=== PATIENT | female | born 1940 | race Caucasian/White ===

== ENCOUNTER 2019-08-27 08:34 | Day surgery (SDC) | payer MEDICARE, OTHER ==
[2019-08-17 10:28] LABS: BASOPHILS # (AUTO) 0.1 X10'3 (0-0.2); BASOPHILS % (AUTO) 0.6 % (0-1); EOSINOPHILS # (AUTO) 0.2 X10'3 (0-0.9); EOSINOPHILS % (AUTO) 2.8 % (0-6); LYMPHOCYTES # (AUTO) 1.7 X10'3 (1.1-4.8); LYMPHOCYTES % (AUTO) 18.9 % (21-51); MEAN CORPUSCULAR HEMOGLOBIN 29.6 PG (27.0-31.0); MEAN CORPUSCULAR HGB CONC 33.1 g/dL (33.0-36.5); MEAN CORPUSCULAR VOLUME 89.2 FL (78-98); MEAN PLATELET VOLUME 8.4 FL (7.4-10.4); MONOCYTES # (AUTO) 0.7 X10'3 (0-0.9); MONOCYTES % (AUTO) 7.2 % (2-12); NEUTROPHILS # (AUTO) 6.3 X10'3 (1.8-7.7); NEUTROPHILS % (AUTO) 70.5 % (42-75); PRE OP HEMATOCRIT 45.6 % (35.0-45.0); PRE OP HEMOGLOBIN 15.1 g/dL (12.0-16.0); PRE OP PLATELET COUNT 257 X10'3 (140-440); RED BLOOD COUNT 5.11 X10'6 (4.20-5.60); RED CELL DISTRIBUTION WIDTH 16.7 % (11.5-14.5)
[2019-08-17 10:44] LABS: PRE OP PROTIME 10.5 SECONDS (9.0-12.0)
[2019-08-17 10:49] LABS: ALBUMIN 3.9 G/DL (3.4-5.0); ALBUMIN/GLOBULIN RATIO 1.4 (1.1-1.5); ALKALINE PHOSPHATASE 110 IU/L (46-116); BLOOD UREA NITROGEN 26 MG/DL (7-18); BUN/CREATININE RATIO 30.6 (6.6-38.0); CALCIUM 9.3 MG/DL (8.5-10.1); CHLORIDE 103 MMOL/L (99-107); CREATININE 0.85 MG/DL (0.40-0.90); PRE OP ANION GAP 6 (8-16); PRE OP AST 49 U/L (10-37); PRE OP BILIRUB, TOTAL 0.4 MG/DL (0.0-1.0); PRE OP GLUCOSE 101 MG/DL (70-104); PRE OP POTASSIUM 3.7 MMOL/L (3.4-5.1); PRE OP SODIUM 141 MMOL/L (135-145); TOTAL PROTEIN 6.7 G/DL (6.4-8.2); eGFR 64 ML/MIN
[2019-08-17 10:52] LABS: PRE OP ALT 102 U/L (30-65)
[2019-08-27] VITALS (17 sets, daily range): BP systolic 122–198; BP diastolic 53–96
[~2019-08-27] VITALS: Ht 162.6 cm; Wt 79.4 kg
[~2019-08-27 08:34] MED LIST: AMIT25TA10 PO; AREDS2; ASPI81TA44 PO; Cefazolin 2GM/100ML NS IVPB 100 ML IV ONE; FERR325T28 PO; HYDR-3964 PO; IBUP-1986 PO; LEVO100T9 PO; MAGN400T28 PO; SIMV-42 PO; TRIA1TAB92 PO; famotidine 20mg tablet PO ONE; vancomycin inj 1,500 MG in normal saline 300ml IV soln IV ONE
[2019-08-27] MEDS: ringers solution, lacted 1,000 ML IV SCH ×3 (08:52→16:47)
[2019-08-27] MEDS ORDERED: BUPIVAcaine/PF 2.5 mg/ml (0.25%) 30ml vial ONE (10:10)
[2019-08-27] MEDS ORDERED: BUPIVACAINE liposomal/PF 13.3 MG/ML vial IM ONE (10:18)
[2019-08-27] MEDS ORDERED: BUPIVAcaine 0.5% inj/PF 30 ML ONE (10:18)
[2019-08-27] MEDS ORDERED: hydrALAZINE 20mg/ml inj. IV PRN ×2 (10:20→11:20)
[2019-08-27] MEDS ORDERED: labetalol 20mg/4ml (5mg/ml) syringe IV PRN ×2 (10:20→11:20)
[2019-08-27] MEDS ORDERED: ondansetron/PF 4mg/2ml inj IV PRN ×3 (10:20→13:05)
[2019-08-27] MEDS ORDERED: fentaNYL/PF 50MCG/1 ML 2ML syringe IV PRN ×4 (10:20→11:20)
[2019-08-27] MEDS ORDERED: ringers solution, lacted 1,000 ML IV SCH ×2 (10:20→11:16)
[2019-08-27] MEDS ORDERED: morphine 4 MG/ML inj SYRINge IV PRN ×4 (10:20→11:20)
[2019-08-27] MEDS ORDERED: fentaNYL/PF 50MCG/1 ML 2ML syringe ONE (10:26)
[2019-08-27] MEDS ORDERED: midazolam 2 mg/2 ml injection ONE (10:26)
[2019-08-27] MEDS ORDERED: sevoflurane 250ml liquid IH ONE (10:28)
[2019-08-27] MEDS ORDERED: ondansetron/PF 4mg/2ml inj ONE (10:28)
[2019-08-27] MEDS ORDERED: dexamethasone sod phosphate 10mg/ml inj ONE (10:28)
[2019-08-27] MEDS ORDERED: propofol inj 20 ML IV ONE (11:08)
[2019-08-27] MEDS ORDERED: LIDOcaine 2% (20mg/ml) 5ml vial ONE (11:08)
[2019-08-27] MEDS ORDERED: acetaminophen 1,000mg/100ml IV 100 ML IV ONE (11:30)
--- NOTE | 2019-08-27 12:54 | NUR ---
Received from OR via [facility] BED WITH [facility] , accompanied by Anesthesiologist ASHU and report given by Anesthesiolgist. PATIENT WITH 20G PIV IN RIGHT UE RUNNING LR AT 100. ANTERIOR LEFT SHOUDLER DRESSING IS CDI. VSS. PATIENT WITH 10L MASK ON WITH 98% SATURATIONS. SCDS DONNED. MEDICATED FOR PAIN. Addendum: 08/27/19 at 1314 by Frank Parson RN, RN Amended: Links added.
[2019-08-27] MEDS ORDERED: magnesium hydroxide 30ml (MOM) UD suspension PO PRN (13:05)
[2019-08-27] MEDS ORDERED: diphenhydrAMINE 25mg capsule PO PRN ×2 (13:05)
[2019-08-27] MEDS ORDERED: acetaminophen 325mg tablet PO PRN (13:05)
[2019-08-27] MEDS ORDERED: bisacodyl 10mg suppository rectal RC PRN (13:05)
[2019-08-27] MEDS ORDERED: HYDROcodone/acetaminophen 10/325mg tab PO PRN (13:05)
--- NOTE | 2019-08-27 13:54 | NUR ---
ALL CRITERIA FOR TRANSFER TO THE FLOOR HAS BEEN ACHIEVED. VSS. BED LOW, CALL LIGHT AND VS. SET IN PLACE. RN PRESENT TO ACCEPT CARE. PATIENT RESTING COMFORTABLY IN BED. BELONGINGS SENT WITH PATIENT. DRESSINGS CDI. RADHA ANDERSEN PRESENT TO ACCEPT CARE OF THIS PATIENT. Addendum: 08/27/19 at 1427 by Frank Maher - RADHA GARCIA Amended: Links added.
[2019-08-27] MEDS ORDERED: polyvinyl alcohol ophthalmic drops 15ml bottle LEFTEYE PRN (15:35)
[2019-08-27] MEDS: potassium Cl 20mEq in NS 1,000 ML IV SCH (16:44)
[2019-08-27] MEDS: ceFAZolin 1GM/D5W- ADD-VANTAGE 50 ML IV SCH (16:45)
--- NOTE | 2019-08-27 18:13 | NUR ---
REPORT GIVEN TO RADHA SMITH
--- NOTE | 2019-08-27 19:00 | NUR ---
Patient in room ORTHO 4015. I have received report from Avtar GARCIA and had the opportunity to ask questions and assume patient care.
[2019-08-27] MEDS ORDERED: vancomycin/NS 1 GM ADD-VANTAGE 250 ML IV SCH (20:00)
[2019-08-27] MEDS ORDERED: sennosides 8.6mg tablet PO SCH (21:00)
[2019-08-27] MEDS ORDERED: levoTHYROXINE 100mcg tablet PO SCH (21:00)
[2019-08-28] MEDS: ceFAZolin 1GM/D5W- ADD-VANTAGE 50 ML IV SCH (00:07)
[2019-08-28] MEDS: potassium Cl 20mEq in NS 1,000 ML IV SCH ×2 (02:25→07:47)
--- NOTE | 2019-08-28 06:10 | NUR ---
Patient in room ORTHO 4015. I have received report from SARAH GARCIA and had the opportunity to ask questions and assume patient care.
[2019-08-28] MEDS ORDERED: triamterene/HCTZ 37.5/25mg tablet PO SCH (08:00)
[2019-08-28] MEDS ORDERED: amitriptyline 50mg tablet PO SCH (08:00)
[2019-08-28] MEDS ORDERED: aspirin 81mg tablet.DR PO SCH (08:00)
[2019-08-28 09:25] VITALS: BP 118/60
--- NOTE | 2019-08-28 10:00 | NUR ---
Student documentation: I have reviewed and agree with all interventions, assessments performed and documented by INÉS VERAS. Student Medication Administration: For this medication-pass time frame, all medication were reviewed, dispensed, administered and documented per hospital policy by INÉS VERAS.
--- NOTE | 2019-08-28 10:30 | NUR ---
PATIENT DISCHARGED HOME SAFELY WITH FRIEND AND ALL BELONGING AND POSSESSIONS. PATIENT VERBALIZED UNDERSTANDING OF DISCHARGE INSTRUCTIONS
== END 2019-08-28 10:30 | disposition home or self-care (01) ==
LOC: PAS 08:34 → ORTHO 4S 13:09 → PAS 08-28 10:30
PROVIDERS: ATTEND Orthopaedic Surgery
DX: S46.012A Strain of muscle(s) and tendon(s) of the rotator cuff of left shoulder, initial encounter (principal); M19.012 Primary osteoarthritis, left shoulder; G89.18 Other acute postprocedural pain; I10 Essential (primary) hypertension; Z79.899 Other long term (current) drug therapy; Z79.01 Long term (current) use of anticoagulants; Z88.5 Allergy status to narcotic agent; Z96.651 Presence of right artificial knee joint; Z90.710 Acquired absence of both cervix and uterus; X58.XXXA Exposure to other specified factors, initial encounter; Y93.89 Activity, other specified; Y92.89 Other specified places as the place of occurrence of the external cause; Y99.8 Other external cause status
CPT/HCPCS: 23120; 23412; 36415; 64415; 80053; 82948; 85025; 85610; 85730; 93005; A6223; C1713; C9290; J0131; J0690; J1100; J2001; J2250; J2270; J2405; J2704; J3010; J3370; J3480; J3490; J7120; A4565; A4618; A6253; A6449; A7000; G0378

== ENCOUNTER 2024-11-23 09:39 | Inpatient (IN) | payer MEDICARE, OTHER ==
[~2024-11-23] VITALS: Ht 162.6 cm; Wt 78.3 kg
[~2024-11-23 09:39] MED LIST changes: -AREDS2; -Cefazolin 2GM/100ML NS IVPB 100 ML IV ONE; -FERR325T28 PO; -HYDR-3964 PO; -IBUP-1986 PO; -MAGN400T28 PO; -SIMV-42 PO; -famotidine 20mg tablet PO ONE; -vancomycin inj 1,500 MG in normal saline 300ml IV soln IV ONE
[2024-11-23 10:31] LABS: BASOPHILS # (AUTO) 0.1 X10'3 (0-0.2); BASOPHILS % (AUTO) 0.7 % (0-1); EOSINOPHILS # (AUTO) 0.3 X10'3 (0-0.9); EOSINOPHILS % (AUTO) 3.7 % (0-6); HEMATOCRIT 45.5 % (35.0-45.0); HEMOGLOBIN 15.2 g/dl (12.0-16.0); LYMPHOCYTES # (AUTO) 1.4 X10'3 (1.1-4.8); LYMPHOCYTES % (AUTO) 16.4 % (21-51); MEAN CORPUSCULAR HGB CONC 33.4 g/dL (33.0-36.5); MEAN CORPUSCULAR VOLUME 89.8 FL (78-98); MEAN PLATELET VOLUME 8.9 FL (7.4-10.4); MONOCYTES # (AUTO) 0.7 X10'3 (0-0.9); MONOCYTES % (AUTO) 7.9 % (2-12); NEUTROPHILS # (AUTO) 6.2 X10'3 (1.8-7.7); NEUTROPHILS % (AUTO) 71.3 % (42-75); PLATELET COUNT 280 X10'3 (140-440); RED BLOOD COUNT 5.06 X10'6 (4.20-5.60); RED CELL DISTRIBUTION WIDTH 15.5 % (11.5-14.5); WHITE BLOOD COUNT 8.7 X10'3 (4.5-11.0)
[2024-11-23 10:35] LABS: ALANINE AMINOTRANSFERASE 75 U/L (12-78); ALBUMIN/GLOBULIN RATIO 1.3 (1.1-1.5); ALKALINE PHOSPHATASE 99 IU/L (46-116); ANION GAP 4 (8-16); ASPARTATE AMINO TRANSFERASE 34 U/L (10-37); BILIRUBIN,TOTAL 0.5 MG/DL (0.1-1.0); BLOOD UREA NITROGEN 32 MG/DL (7-18); BUN/CREATININE RATIO 33.3 (10.0-20.0); CALCIUM 9.6 MG/DL (8.5-10.1); CHLORIDE 102 MMOL/L (99-107); CREATININE 0.96 MG/DL (0.40-0.90); GLUCOSE 93 MG/DL (70-104); POTASSIUM 4.7 MMOL/L (3.5-5.1); SODIUM 139 MMOL/L (135-145); TOTAL CARBON DIOXIDE 33.4 MMOL/L (24-32); eCRCL 36 ML/MIN; eGFR 55 ML/MIN
[2024-11-23 10:41] LABS: PRO BRAIN NATRIURETIC PEPTIDE 1093 PG/ML (0-450)
[2024-11-23] MEDS: aspirin 81mg tab.chew PO ONE (12:23)
[2024-11-23 12:51] LABS: APTT 26 SECONDS (22-32); PROTHROMBIN TIME 10.8 SECONDS (9.0-12.0)
[2024-11-23] MEDS ORDERED: METO25TA6 PO (12:58)
[2024-11-23] MEDS ORDERED: LISI5TAB22 PO (12:58)
[2024-11-23] MEDS ORDERED: SIMV-42 PO (12:59)
[2024-11-23] MEDS ORDERED: potassium Cl 20 mEq SR tablet PO PRN ×2 (13:15)
[2024-11-23] MEDS ORDERED: magnesium sulf-water 2g/50mL 50 ML IV PRN (13:15)
[2024-11-23] MEDS ORDERED: magnesium hydroxide 30ml (MOM) UD suspension PO PRN (13:15)
[2024-11-23] MEDS ORDERED: magnesium Cl slow-release 64mg tablet PO PRN (13:15)
[2024-11-23] MEDS ORDERED: magnesium sulf-water 4G/100mL 100 ML IV PRN (13:15)
[2024-11-23] MEDS ORDERED: potassium Cl 40MEQ/1/2NS 520ml 520 ML IV PRN (13:15)
[2024-11-23] MEDS ORDERED: morphine 2 MG/ML inj. syringe IV PRN ×2 (13:15)
[2024-11-23] MEDS ORDERED: ondansetron/PF 4mg/2ml inj IV PRN (13:15)
[2024-11-23] MEDS ORDERED: mag hydrox/Alum hydrox/simeth 30ml oral suspension PO PRN (13:15)
[2024-11-23] MEDS: normal saline 1000ml 1,000 ML IV SCH (14:07)
[2024-11-23] MEDS: simvastatin 20mg tablet PO SCH (17:36)
[2024-11-23] MEDS: docusate sod 100mg capsule PO SCH (20:00)
[2024-11-23] MEDS: K and/or MAG REPLACEMENT MC SCH (20:00)
[2024-11-23] MEDS: metoprolol tartrate 25mg tablet PO SCH (20:26)
[2024-11-23] MEDS: levoTHYROXINE 100mcg tablet PO SCH (21:00)
[2024-11-23 22:15] VITALS: BP 161/66; PULSE 72; RESP 19; TEMP 97.6; O2SAT 96
[2024-11-23 23:06] VITALS: RESP 19; O2SAT 96
[2024-11-24] VITALS (14 sets, daily range): BP systolic 108–167; BP diastolic 52–77; PULSE 70–89; RESP 11–17; TEMP 97–97.9; O2SAT 91–98
[2024-11-24] MEDS: acetaminophen 325mg tablet PO PRN ×2 (01:45→21:37)
[2024-11-24 07:02] LABS: BASOPHILS # (AUTO) 0.1 X10'3 (0-0.2); BASOPHILS % (AUTO) 0.7 % (0-1); EOSINOPHILS # (AUTO) 0.2 X10'3 (0-0.9); EOSINOPHILS % (AUTO) 3.1 % (0-6); HEMATOCRIT 42.6 % (35.0-45.0); HEMOGLOBIN 14.1 g/dl (12.0-16.0); LYMPHOCYTES # (AUTO) 1.4 X10'3 (1.1-4.8); LYMPHOCYTES % (AUTO) 17.3 % (21-51); MEAN CORPUSCULAR HEMOGLOBIN 29.3 PG (27.0-31.0); MEAN PLATELET VOLUME 8.6 FL (7.4-10.4); MONOCYTES # (AUTO) 0.7 X10'3 (0-0.9); MONOCYTES % (AUTO) 8.5 % (2-12); NEUTROPHILS # (AUTO) 5.6 X10'3 (1.8-7.7); NEUTROPHILS % (AUTO) 70.4 % (42-75); PLATELET COUNT 250 X10'3 (140-440); RED BLOOD COUNT 4.79 X10'6 (4.20-5.60); RED CELL DISTRIBUTION WIDTH 14.9 % (11.5-14.5); WHITE BLOOD COUNT 7.9 X10'3 (4.5-11.0)
[2024-11-24 07:29] LABS: ALANINE AMINOTRANSFERASE 72 U/L (12-78); ALBUMIN 3.5 G/DL (3.4-5.0); ALBUMIN/GLOBULIN RATIO 1.2 (1.1-1.5); ALKALINE PHOSPHATASE 95 IU/L (46-116); ANION GAP 9 (8-16); ASPARTATE AMINO TRANSFERASE 38 U/L (10-37); BILIRUBIN,TOTAL 0.5 MG/DL (0.1-1.0); BLOOD UREA NITROGEN 30 MG/DL (7-18); BUN/CREATININE RATIO 31.9 (10.0-20.0); CALCIUM 9.1 MG/DL (8.5-10.1); CHLORIDE 104 MMOL/L (99-107); CREATININE 0.94 MG/DL (0.40-0.90); GLUCOSE 105 MG/DL (70-104); MAGNESIUM 1.8 MG/DL (1.5-2.4); POTASSIUM 4.6 MMOL/L (3.5-5.1); SODIUM 141 MMOL/L (135-145); TOTAL CARBON DIOXIDE 27.7 MMOL/L (24-32); TOTAL PROTEIN 6.4 G/DL (6.4-8.2); eCRCL 37 ML/MIN; eGFR 56 ML/MIN
[2024-11-24] MEDS: lisinopril 5mg tablet PO SCH (08:00)
[2024-11-24] MEDS ORDERED: fentaNYL/PF 50MCG/1 ML 2ML syringe ONE (11:45)
[2024-11-24] MEDS ORDERED: iohexol 350MG/ML 100ml bottle IV ONE (12:49)
[2024-11-24] MEDS ORDERED: midazolam 1 mg/ML 2ml injection ONE (12:58)
[2024-11-24] MEDS ORDERED: clopidogrel 300mg tablet ONE (13:09)
[2024-11-24] MEDS ORDERED: ondansetron/PF 4mg/2ml inj ONE (13:20)
[2024-11-24] MEDS ORDERED: HYDROcodone/acetaminophen 10/325mg tab PO PRN (13:55)
[2024-11-24] MEDS ORDERED: ondansetron/PF 4mg/2ml inj IV PRN (13:55)
[2024-11-24] MEDS ORDERED: proCHLORperazine 10 MG/2 ml inj IV PRN (13:55)
[2024-11-24] MEDS: HYDROcodone/acetaminophen 5mg/325mg tablet PO PRN (14:29)
[2024-11-24] MEDS: triamterene/HCTZ 37.5/25mg tablet PO SCH (14:58)
[2024-11-24] MEDS: amitriptyline 25mg tablet PO SCH (15:00)
[2024-11-24] MEDS: aspirin 81mg, enteric-coated 1 TAB TABLET.DR PO SCH (15:00)
[2024-11-24 17:59] LABS: CHOL/HDL RATIO 3.8 (0.00-4.99); CHOLESTEROL 173 MG/DL (0-200); HDL CHOLESTEROL 45 MG/DL (35-60); LDL CHOLESTEROL 90 MG/DL (50-100); TRIGLYCERIDES 148 MG/DL (20-135)
[2024-11-25 02:06] VITALS: BP 119/65; PULSE 78; RESP 18; TEMP 97.8; O2SAT 96
[2024-11-25 06:00] VITALS: BP 112/73; PULSE 66; RESP 18; TEMP 97.8; O2SAT 97
[2024-11-25 07:07] LABS: ALANINE AMINOTRANSFERASE 54 U/L (12-78); ALBUMIN 3.1 G/DL (3.4-5.0); ALBUMIN/GLOBULIN RATIO 1.2 (1.1-1.5); ALKALINE PHOSPHATASE 79 IU/L (46-116); ANION GAP 7 (8-16); ASPARTATE AMINO TRANSFERASE 29 U/L (10-37); BILIRUBIN,TOTAL 0.5 MG/DL (0.1-1.0); BLOOD UREA NITROGEN 27 MG/DL (7-18); BUN/CREATININE RATIO 28.1 (10.0-20.0); CALCIUM 8.5 MG/DL (8.5-10.1); CHLORIDE 102 MMOL/L (99-107); CREATININE 0.96 MG/DL (0.40-0.90); GLUCOSE 96 MG/DL (70-104); POTASSIUM 4.2 MMOL/L (3.5-5.1); SODIUM 138 MMOL/L (135-145); TOTAL PROTEIN 5.6 G/DL (6.4-8.2); eCRCL 36 ML/MIN; eGFR 55 ML/MIN
[2024-11-25 07:15] LABS: MAGNESIUM 1.7 MG/DL (1.5-2.4); THYROID STIMULATING HORMONE 4.69 ulU/ml (0.34-4.50)
[2024-11-25 07:49] LABS: BASOPHILS # (AUTO) 0.1 X10'3 (0-0.2); BASOPHILS % (AUTO) 0.7 % (0-1); EOSINOPHILS # (AUTO) 0.3 X10'3 (0-0.9); EOSINOPHILS % (AUTO) 3.5 % (0-6); HEMATOCRIT 40.4 % (35.0-45.0); HEMOGLOBIN 13.1 g/dl (12.0-16.0); LYMPHOCYTES # (AUTO) 1.2 X10'3 (1.1-4.8); LYMPHOCYTES % (AUTO) 15.7 % (21-51); MEAN CORPUSCULAR HEMOGLOBIN 29.3 PG (27.0-31.0); MEAN CORPUSCULAR HGB CONC 32.3 g/dL (33.0-36.5); MEAN CORPUSCULAR VOLUME 90.5 FL (78-98); MEAN PLATELET VOLUME 8.8 FL (7.4-10.4); MONOCYTES # (AUTO) 0.7 X10'3 (0-0.9); NEUTROPHILS # (AUTO) 5.4 X10'3 (1.8-7.7); NEUTROPHILS % (AUTO) 71.1 % (42-75); PLATELET COUNT 201 X10'3 (140-440); RED BLOOD COUNT 4.46 X10'6 (4.20-5.60); RED CELL DISTRIBUTION WIDTH 15.7 % (11.5-14.5); WHITE BLOOD COUNT 7.6 X10'3 (4.5-11.0)
[2024-11-25 08:00] VITALS: RESP 18; O2SAT 97
[2024-11-25] MEDS: levoTHYROXINE 100mcg tablet PO SCH (08:00)
[2024-11-25] MEDS ORDERED: CLOP75TA34 PO (08:41)
[2024-11-25] MEDS: clopidogrel 75mg tablet PO SCH (09:27)
[2024-11-25 09:32] VITALS: BP_SYST 112; PULSE 75
[2024-11-25] MEDS ORDERED: FURO-150 PO (20:18)
== END 2024-11-25 10:46 | disposition home or self-care (01) | DRG 322 ==
LOC: ER 09:39 → ED HOLD 13:13 → EDBEDREQ 21:02 → PCU 3S 22:10
PROVIDERS: ADMIT Internal Medicine; ATTEND Internal Medicine
PROC: 027034Z Dilation of Coronary Artery, One Artery with Drug-eluting Intraluminal Device, Percutaneous Approach (ICD-10-PCS; principal; 2024-11-24)
PROC: 4A023N7 Measurement of Cardiac Sampling and Pressure, Left Heart, Percutaneous Approach (ICD-10-PCS; 2024-11-24)
PROC: B2111ZZ Fluoroscopy of Multiple Coronary Arteries using Low Osmolar Contrast (ICD-10-PCS; 2024-11-24)
PROC: B2151ZZ Fluoroscopy of Left Heart using Low Osmolar Contrast (ICD-10-PCS; 2024-11-24)
DX: I25.110 Atherosclerotic heart disease of native coronary artery with unstable angina pectoris (principal); I51.81 Takotsubo syndrome; M25.511 Pain in right shoulder; R61 Generalized hyperhidrosis; E78.00 Pure hypercholesterolemia, unspecified; I10 Essential (primary) hypertension; G89.29 Other chronic pain; E03.9 Hypothyroidism, unspecified; J45.909 Unspecified asthma, uncomplicated; F41.9 Anxiety disorder, unspecified; Z96.651 Presence of right artificial knee joint; Z66 Do not resuscitate; Z79.899 Other long term (current) drug therapy; Z88.5 Allergy status to narcotic agent; Z91.018 Allergy to other foods; Z90.710 Acquired absence of both cervix and uterus; Z90.49 Acquired absence of other specified parts of digestive tract; Z87.891 Personal history of nicotine dependence
CPT/HCPCS: 93458; 96360; 99285; C9600; 36415; 71045; 80048; 80053; 80061; 83735; 83880; 84443; 84484; 85025; 85610; 85730; 87081; 93005; 99152; 99153; A4615; A6213; A6222; A6223; A6258; A6446; A6449; C1725; C1751; C1769; C1874; C1894; G0378; J1644; J2003; J2250; J2405; J3010; J3490; J7030; Q9967